=== PATIENT | female | born 1970 | race Caucasian/White ===

== ENCOUNTER 2018-02-02 14:08 | Emergency (ER) | payer OTHER, SELFPAY ==
[2018-02-02] VITALS (11 sets, daily range): BP systolic 119–149; BP diastolic 78–82; PULSE 57–71; RESP 7–19; TEMP 36.7; O2SAT 92–98
[2018-02-02 14:44] LABS: Abs Immature Grans 0.01 k/cumm (0.0-0.09); Absolute Basophil Count 0.03 k/cumm (0.0-0.2); Absolute Eosinophil Count 0.09 k/cumm (0.0-0.7); Absolute Lymphocyte Count 1.67 k/cumm (1.2-3.4); Absolute Monocyte Count 0.48 k/cumm (0.11-0.7); Absolute Neutrophil Count 4.93 k/cumm (1.2-6.7); Basophils % 0.4; Eosinophils % 1.2; HCT 44.2 % (36.0-46.0); HGB 15.2 g/dL (12.0-15.5); Immature Grans % 0.1; Lymphocytes % 23.2; Mean Corp. HGB Concentration 34.4 g/dL (32.0-36.0); Mean Corpuscular Hemoglobin 30.5 pg (27.0-33.0); Mean Corpuscular Volume 88.6 fL (80-95); Mean Platelet Volume 10.8 fL (8.0-11.0); Monocytes % 6.7; Neutrophils % 68.4; Platelet Count 260 x1000/uL (130-400); RBC 4.99 m/cumm (4.00-5.20); RBC Distribution Width 12.5 % (11.7-14.6); White Blood Cell Count 7.21 k/cumm (4.4-10.8)
--- NOTE | 2018-02-02 14:47 | DI.RAD_ITS ---
SYMPTOMS/DIAGNOSIS: SHORTNESS OF BREATH, OCCASIONAL INTERMITTENT CHEST PAIN X 5 DAYS PA AND LATERAL CHEST: The heart is normal in size. The lungs are clear. The mediastinal structures and pleura appear intact. CONCLUSION: Normal chest.
[2018-02-02 15:04] LABS: ALT 36 U/L (12-78); AST 18 U/L (15-37); Alkaline Phosphatase 67 U/L (46-116); Anion Gap 9.9 mmol/L (3-11); BUN 9 mg/dL (7-18); Bilirubin, Total 0.7 mg/dL (0.2-1.0); CO2 30.1 mmol/L (21.0-32.0); CREATININE 0.83 mg/dL (0.55-1.02); Calcium 9.6 mg/dL (8.5-10.1); Chloride 103 mmol/L (98-107); Glucose 114 mg/dL (70-100); Magnesium 1.7 mg/dL (1.8-2.4); Potassium 3.7 mmol/L (3.5-5.1); Sodium 143 mmol/L (136-145); Troponin I 0.02 ng/mL (0.00-0.06)
[2018-02-02 15:27] LABS: D-Dimer 241 ng/mlFEU (<500)
--- NOTE | 2018-02-02 16:24 | W.ED.GENAD ---
Discharge Plan Disposition Patient Disposition: HOME Condition: Good Discharge Details Chief Complaint: Chest Pain Clinical Impression: Chest pain Primary Care Provider: [facility] ED Provider: Eddie Caceres Home Meds and New Rx's Prescriptions: No Action multivitamin Tablet 1 tab PO DAILY RF: 0 Discharge Instructions Instructions: Chest Pain (ED) Additional Instructions: If you notice any worsening of your symptoms, or any new symptoms such as vomiting, diarrhea, fever, chills, shortness of breath, chest pain, numbness, weakness, or fainting , please return immediately to the emergency department for reevaluation. Please follow up with your primary care provider as soon as possible for reassessment and reevaluation. As always, it was a pleasure participating in your medical care today. Discharge Data Discharge Date/Time-TO BE ENTERED AT DEPARTURE: 02/02/18 17:08 Medical Decision Making This is a pleasant 47-year-old female with no significant past medical history but a family history positive for cardiac disease who presents today for evaluation of chest pain. She states that she has had intermittent chest pain over the last 1-2 weeks, it is usually sharp and achy in nature, it lasted roughly 10 minutes, it is nonexertional, she has questionable shortness of breath associated with it. Symptoms are improved when she lies on her back. Symptoms have no significant aggravating factors that she can attribute to it. She denies any associated hemoptysis, she has no significant red flags for pulmonary embolism aside for a recent trip from [place], however her pain began prior to that. Physical exam demonstrates no significant abnormalities, vital signs are normal, laboratory workup was performed and demonstrates a normal white count, no renal or electrolyte abnormalities, normal troponin, and a normal EKG. d-dimer was ordered and is within normal limits. Patient is low risk on her Wells score. I feel that a PE can be ruled out with a negative d-dimer. Chest x-ray is negative for any acute process per radiology. As the patient is currently symptom-free, has reproducible chest pain on exam, has a heart score less than 3, demonstrates a negative workup, and feel that she can be safely discharged home. We discussed red flags which return the patient understands. Differential includes musculoskeletal chest pain, precordial catch syndrome. I have extensively reviewed the treatment plan and discharge instructions with the patient. I have addressed all patient concerns at this time. The patient was made aware of what symptoms to monitor for that would warrant a return to the emergency department. Discussed the plan with the patient, they demonstrate verbal understanding and agreement with our assessment and plan at this time. jose angel(s) saad RAD:XR chest 2V PA & lateral SYMPTOMS/DIAGNOSIS: SHORTNESS OF BREATH, OCCASIONAL INTERMITTENT CHEST PAIN X 5 DAYS PA AND LATERAL CHEST: The heart is normal in size. The lungs are clear. The mediastinal structures and pleura appear intact. CONCLUSION: Normal chest. EKG 14: 18 Rate 58, intervals normal, sinus bradycardia, no ST elevations or depressions, no T wave inversions except for in lead III. No Q waves. HPI General Date/Time Provider Initiated Documentation: 02/02/18 14:46. HPI Narrative: This is a 47-year-old female with no significant past medical history who presents today for evaluation of chest pain. The patient states that she has had occasional chest pain for the last week. It lasts about 10 minutes, she describes it as sharp in nature, there will be a brief pleuritic component, and then it resolves on its own. She has had no associated cough or significant shortness of breath. She denies any exertional component. She denies any hemoptysis, fever or chills. Of note she did recently fly from [place] within the past 5 days however her pain began prior to that. Family history is positive for myocardial infarction in her mother, and family history of pulmonary emboli in her grandparents. She denies any recent surgeries. She is not on any exogenous estrogen use, she denies any leg or calf pain. She has no other complaints at this time. Related Data Home Medications Medication Instructions Recorded Confirmed multivitamin 1 tab PO DAILY 02/02/18 02/02/18 Allergies Allergy/AdvReac Type Severity Reaction Status Date / Time shellfish derived AdvReac Mild GI upset: Unverified 02/02/18 14:49 V/D General Stated Complaint: Chest Pain OLIVIER: 2 Review of Systems Review of Systems All systems reviewed & are unremarkable except as noted in HPI and below PFSH Social History Smoking/Tobacco Use Status: Never Exam Narrative Exam Narrative: 1.Const: Well-nourished, Well-developed, appearing stated age 2.Eyes: PERRL, no conjunctival injection, and symmetrical lids. 3.ENT: Atraumatic external nose and ears. Moist MM. Neck: Symmetric, trachea midline, No thyromegaly. 4.CVS: +S1/S2, No murmurs or gallops. Peripheral pulses 2+ and equal in all extremities. Brisk capillary refill in all extremities. Mild reproducible chest pain present over the sixth left intercostal space just on the left paraspinal component. 5.RESP: Unlabored respiratory effort. Clear to auscultation bilaterally. No wheezes rales or rhonchi 6.GI: Soft, Nontender/Nondistended, No hepatosplenomegaly. No guarding or rebound. 7.MSK: Normocephalic/Atraumatic, Extremities w/o deformity or ttp No cyanosis or clubbing, Normal movement of all extremities. No calf tenderness, edema, negative Homans sign. 8.Skin: Warm, Dry. No rashes or lesions. 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 Sensation grossly intact, no focal neurologic deficits. 10.Psych: (AAO) x3. Appropriate mood and affect Course Vital Signs Temperature 36.7 C 02/02/18 14:13 Pulse 60 02/02/18 14:13 Respiratory Rate 14 02/02/18 14:13 Blood Pressure 149/82 H 02/02/18 14:13 Pulse Oximetry 98 02/02/18 14:13 Temperature 36.7 C 02/02/18 14:13 Temperature Source Skin 02/02/18 14:13 Pulse 66 02/02/18 15:46 Pulse 60 02/02/18 15:50 Respiratory Rate 14 02/02/18 15:50 Respiratory Effort Accessory Muscle Use 02/02/18 15:24 Respiratory Depth Normal 02/02/18 15:24 Respiratory Pattern Normal 02/02/18 15:24 Blood Pressure 127/81 02/02/18 15:46 Blood Pressure Mean 89 02/02/18 15:46 Blood Pressure Position Sitting 02/02/18 14:13 Pulse Oximetry 94 L 02/02/18 15:50 Oxygen Delivery Method Room Air 02/02/18 14:13 Oxygen Flow Rate 0 02/02/18 14:13 Pain Level 5 02/02/18 15:24 Lab/Test Results Lab/Test Results: Laboratory Tests Range/Units 02/02/18 02/02/18 02/02/18 14:30 14:30 14:30 WBC (4.4-10.8) k/cumm 7.21 RBC (4.00-5.20) m/cumm 4.99 Hgb (12.0-15.5) g/dL 15.2 Hct (36.0-46.0) % 44.2 MCV (80-95) fL 88.6 MCH (27.0-33.0) pg 30.5 MCHC (32.0-36.0) g/dL 34.4 RDW (11.7-14.6) % 12.5 Plt Count (130-400) x1000/uL 260 MPV (8.0-11.0) fL 10.8 Immature Gran % 0.1 Neutrophils % 68.4 Lymphocytes % 23.2 Monocytes % 6.7 Eosinophils % 1.2 Basophils % 0.4 Absolute Neutrophils (1.2-6.7) k/cumm 4.93 Absolute Lymphocytes (1.2-3.4) k/cumm 1.67 Absolute Monocytes (0.11-0.7) k/cumm 0.48 Absolute Eosinophils (0.0-0.7) k/cumm 0.09 Absolute Basophils (0.0-0.2) k/cumm 0.03 D-Dimer (<500) ng/mlFEU 241 Sodium (136-145) mmol/L 143 Potassium (3.5-5.1) mmol/L 3.7 Chloride (98-107) mmol/L 103 Carbon Dioxide (21.0-32.0) mmol/L 30.1 Anion Gap (3-11) mmol/L 9.9 BUN (7-18) mg/dL 9 Creatinine (0.55-1.02) mg/dL 0.83 Estimated GFR/1.73 m2 (mL/min/1.73m2) >= 60.00 Glucose (70-100) mg/dL 114 H Calcium (8.5-10.1) mg/dL 9.6 Magnesium (1.8-2.4) mg/dL 1.7 L Total Bilirubin (0.2-1.0) mg/dL 0.7 AST (15-37) U/L 18 ALT (12-78) U/L 36 Alkaline Phosphatase (46-116) U/L 67 Troponin I (0.00-0.06) ng/mL 0.02 Total Protein (6.4-8.2) g/dL 8.0 Albumin (3.4-5.0) g/dL 4.0
== END 2018-02-02 17:08 | disposition home or self-care (01) ==
PROVIDERS: Emergency Provider Student in an Organized Health Care Education/Training Program
DX: R07.9 Chest pain, unspecified (principal); R06.02 Shortness of breath
CPT/HCPCS: 36415; 80053; 93005; 99285; 71046; 83735; 84484; 85025; 85379; 93010; 99284